=== PATIENT | male | born 1965 | race Caucasian/White ===

== ENCOUNTER 2022-10-18 18:30 | Emergency (ER) | payer BC, SELFPAY ==
[2022-10-18] VITALS (22 sets, daily range): BP systolic 103–142; BP diastolic 61–92; PULSE 69–102; RESP 14–25; TEMP 37.2; O2SAT 91–99
--- NOTE | ~2022-10-18 | XR_ITS ---
EXAMINATION: XR chest 2V DATE: 10/18/2022 21:16 INDICATION: Cough TECHNIQUE: PA and lateral views of the chest are obtained. COMPARISON: None available FINDINGS: There are patchy airspace opacities with a mid and lower lung zone predominance. No pleural effusion or pneumothorax. The cardiomediastinal silhouette is normal. There is mild thoracic spondyl osis. IMPRESSION: 1. Airspace opacities of the mid and lower lung zones, consistent with atelectasis versus pneumonia. Reviewed, dictated and finalized at location F. IMPRESSION: 1. Airspace opacities of the mid and lower lung zones, consistent with atelecta sis versus pneumonia.
--- NOTE | 2022-10-18 20:54 | ED.RECABL ---
HPI - Recheck/Abnormal Lab/Rx General Chief Complaint: Recheck/Abnormal Lab/Rx <JESUS Corea Last Filed: 10/19/22 02:35> Stated Complaint: sent from <JESUS Corea Last Filed: 10/19/22 02:35> Time Seen by Provider: 10/18/22 20:53 <JESUS Corea Last Filed: 10/19/22 02:35> Source: patient <JESUS Corea Last Filed: 10/19/22 02:35> Mode of arrival: ambulatory <JESUS Corea Filed: 10/19/22 02:35> Limitations: no limitations <JESUS Corea Last Filed: 10/19/22 02:35> History of Present Illness HPI narrative: Patient is a 57 y/o male who presents to the ED with c/o cough. Patient reports having a persistent nagging cough for the last 3 days. States cough is worse at night and when laying flat. He denies production of sputum. He denies any other significant upper respiratory symptoms, denies congestion, rhinorrhea, sore throat. He was seen at an outside urgent care this afternoon and was noted to have a fever up to 103 ?F. He was given ibuprofen. He was told there was an abnormal spot on his chest x-ray and was referred to the ED for further evaluation. Patient denied having known fevers at home. Patient mentions having intermittent pain in his lower back only when coughing. Denies any chest pain or shortness of breath. Denies dyspnea with exertion. Denies lower extremity pain or swelling. Denies any family members with similar symptoms. He was tested negative for COVID, flu, strep at the urgent care. <JESUS Corea Last Filed: 10/19/22 02:35> Related Data Allergies/Adverse Reactions: Allergies Allergy/AdvReac Type Severity Reaction Status Date / Time No Known Allergies Allergy Verified 10/18/22 20:58 <JESUS Corea Last Filed: 10/19/22 02:35> Review of Systems Review of Systems: CONSTITUTIONAL: See HPI. ENT: Denies rhinorrhea, congestion, sore throat. CARDIOVASCULAR: Denies chest pain, palpitations, or edema. RESPIRATORY: See HPI. GASTROINTESTINAL: Denies abdominal pain, nausea, vomiting, or diarrhea. SKIN: Denies rash or itching. MUSCULOSKELETAL: See HPI. <Annie Hidalgo PA-C - Last Filed: 10/19/22 02:35> All systems reviewed & are unremarkable except as noted in HPI and below <Annie Hidalgo PA-C - Last Filed: 10/19/22 02:35> Exam Narrative: GENERAL: Well appearing, obese with BMI of 36.5, non-toxic, in no acute distress. HEAD: Normocephalic, atraumatic. NECK: Supple. No adenopathy, no masses. RESPIRATORY: Airway patent, respirations nonlabored. Decreased lung sounds in bases bilaterally, no focal rhonchi. No wheezing. CARDIOVASCULAR: Regular rate and rhythm without murmurs, rubs, or gallops. Radial pulses 2+ and equal bilaterally. ABDOMINAL: Soft, nontender, nondistended, no hepatosplenomegaly. Normoactive BS. MUSCULOSKELETAL: Moves all extremities. Strength/ROM intact without gross deformities. No edema. No calf tenderness. SKIN: Warm, dry, mildly diaphoretic. No rashes. NEURO: A&O X3. Speech clear. Cranial nerves II-XII grossly intact. Steady gait. No ataxic movements. PSYCHIATRIC: Appropriate mood and affect. Normal interaction. <Annie Hidlago PA-C - Last Filed: 10/19/22 02:35> Course [employer]ACH[employer]ENDER/PA Physician Supervision This is a was performed by both a physician and an APC. I performed all aspects of the MDM as documented w/ the following additions: 57-year-old male presenting to ED with persistent cough and fever. Workup was significant for pneumonia. Patient given IV antibiotics here in the emergency department fluid resuscitated. Vital signs returned normal after fluid resuscitation. Overall patient does not want admission. He would rather attempt a course of outpatient management. Patient will be discharged with appropriate antibiotics and return precautions.All questions answered. Patient in ag
--- NOTE | 2022-10-18 20:55 | ECG_ITS ---
Measurements Intervals Apex Rate: 73 P: 30 CO: 174 QRS: -6 QRSD: 95 T: 23 QT: 384 QTc: 426 Interpretive Statements SINUS RHYTHM NO PREVIOUS ECG AVAILABLE FOR COMPARISON Electronically Signed On 10-19-2022 10:49:58 CDT by Memo Solorio M.D.
[2022-10-18 21:15] LABS: Basophils Percent Auto 0.3 % (0.2-1.2); Eosinophils Percent Auto 0.3 % (0-4.4); Hemoglobin 11.8 g/dL (14.0-18.0); Immature Granulocyte Absolute 0.01 K/mm3 (0.00-0.031); Immature Granulocyte Percent A 0.3 % (0-0.5); Lymphocytes Absolute Auto 0.71 K/mm3 (0.9-3.2); Lymphocytes Percent Auto 18.5 % (18.3-44.2); Mean Corpuscular HGB Conc 32.8 g/dl (32-36); Mean Corpuscular Hemoglobin 31.6 pg (26-34); Mean Corpuscular Volume 96.3 fl (80-100); Monocytes Absolute Auto 0.5 K/mm3 (0.1-0.6); Monocytes Percent Auto 13.8 % (2.6-8.5); Neutrophils Absolute Auto 2.6 K/mm3 (1.3-6.7); Neutrophils Percent Auto 66.8 % (45.5-73.1); Platelet Count Result 181 k/mm3 (150-375); Red Blood Count 3.74 M/mm3 (4.6-6.20); Red Cell Distribution Width 13.7 % (11.5-14.5); White Blood Count 3.8 K/mm3 (4.5-10.0)
[2022-10-18 21:35] LABS: Alanine Aminotransferase 31 U/L (6-50); Albumin Level 4.4 g/dL (3.5-5.1); Alkaline Phosphatase 35 U/L (38-126); Anion Gap 8 mmol/L (8-16); Aspartate Amino Transferase 40 U/L (17-59); Bilirubin,Total 0.7 mg/dL (0.2-1.3); Blood Urea Nitrogen 14 mg/dL (9-20); Calcium 8.6 mg/dL (8.4-10.2); Carbon Dioxide 27 mmol/L (22-30); Chloride 102 mmol/L (98-107); Estimated CRCL calculation 100 ml/min; Estimated Glomerular Filt Rate > 60; Glucose 127 mg/dL (65-110); Potassium 3.7 mmol/L (3.4-5.0); Sodium 137 mmol/L (137-145)
[2022-10-18] MEDS: AZITHROMYCIN 500 MG/NS 250 ML 500 MG/250 ML BAG 250 MG IVPB (22:33)
[2022-10-18 22:34] LABS: Lactic Acid Reflex 0.8 mmol/L (0.7-2.0)
== END 2022-10-18 23:42 | disposition home or self-care (01) ==
PROVIDERS: Emergency Provider Physician Assistant
DX: J18.9 Pneumonia, unspecified organism (principal)
CPT/HCPCS: 36415; 71046; 80053; 83605; 85025; 87040; 93005; 96365; 96367; 99284; J0456; J0696

== ENCOUNTER → 2023-04-23 11:40 | Outpatient (CLI) | payer BC, SELFPAY ==
--- NOTE | ~2023-04-23 | XR_ITS ---
Clinical Indication: Pneumonia PA and lateral views of the chest: Comparison: 10/18/2022 Findings: The lungs are clear, without evidence of focal consolidation or pleural effusion. Cardiome diastinal silhouette is within normal limits. Bones and soft tissues are unremarkable. Impression: Normal chest. Reviewed, dictated and finalized at location . IGURATION MANAGEMENT SPECIALIST Impression: Normal chest.
== END ==
DX: J18.9 Pneumonia, unspecified organism (principal)
CPT/HCPCS: 71046

== ENCOUNTER 2024-09-29 15:48 | Outpatient (CLI) | payer BC, OTHER, SELFPAY ==
--- NOTE | ~2024-09-29 | US_ITS ---
EXAMINATION: US soft tissue head and neck DATE: 09/29/2024 16:01 INDICATION: Left sided neck mass TECHNIQUE: Multiple grayscale and Doppler ultrasound images of the region of concern at the supraclav icular left neck were obtained. COMPARISON: None FINDINGS: There are a couple normal-sized hypoechoic left supraclavicular lymph nodes with echogenic fatty mark at the region of concern, the larger measuring 9 x 8 x 9 mm and 9 x 6 x 4 mm. No pathologically enla rged lymph nodes or other abnormal masses or fluid collections identified. IMPRESSION: 1. A couple normal-sized left supraclavicular lymph nodes at the region of concern. Reviewed, dictated and finalized at location A. IMPRESSION: 1. A couple normal-sized left supraclavicular lymph nodes at the region of conc delvin.
== END 2024-09-29 15:49 | disposition home or self-care (01) ==
LOC: MICIMG 15:49
DX: R59.0 Localized enlarged lymph nodes (principal)
CPT/HCPCS: 76536

== ENCOUNTER 2025-03-31 01:31 | Day surgery (SDC) | payer BC, OTHER, SELFPAY ==
[2025-03-27 09:18] VITALS: BMI 34.9
--- NOTE | 2025-03-27 09:31 | PC.NURSE ---
Spoke with patient regarding medication Eliquis. Patient verbalizes understanding that the last dose is to be taken on 03/27/2025 and the Endoscopist will instruct them when to restart after the procedure.
[2025-03-31 08:43] VITALS: BP 133/94; PULSE 75; RESP 20; TEMP 36.2; O2SAT 97; BMI 34.3
--- NOTE | 2025-03-31 08:58 | P.PNAN_ITS ---
Anes - Initial Pre Proc Eval Procedure: Operation Date: 03/31/25 09:30 Proposed Procedures p Screening Colonoscopy - Brijesh Lake MD Date/Time: 03/31/25 08:58 Surgeon: Brijesh Lake MD Pre Op Diagnosis: screening/hx of diverticulosis/hemorrhoids Patient Data Age: 59 Gender: M Height: 1.96 m Weight: 131.4 kg Last Vital Signs Temp 36.2 C L 03/31/25 08:43 Pulse 75 03/31/25 08:43 Resp 20 03/31/25 08:43 BP 133/94 H 03/31/25 08:43 Pulse Ox 97 03/31/25 08:43 O2 Del Method Room Air 03/31/25 08:43 Allergies Allergy/AdvReac Type Severity Reaction Status Date / Time No Known Allergies Allergy Verified 03/31/25 08:50 Home Medications ?Medication ?Instructions ?Recorded ?Confirmed ?Type apixaban 5 mg tablet (Eliquis) 5 mg PO Q12H 03/27/25 1 05/31/24 History simvastatin 40 mg tablet 40 mg PO QPM 03/27/25 History Patient hx anesthesia problems: none Family hx anesthesia problems: none Results Review: All pre-operative results and documents have been reviewed as part of the pre- operative evaluation. [facility] Past Medical History Medical History (Updated 03/31/25 @ 08:58 by Tristen Sepulveda MD) DVT (deep venous thrombosis) Hyperlipidemia Obesity Surgical History Surgical History (Updated 03/31/25 @ 08:58 by Tristen Sepulveda MD) H/O arthroscopic knee surgery Social History Social History Smoking packs per day: 1 Smoking cigarettes per day: 20.0 Years smoked: 28 Smoking pack-years: 28.00 Smoking status: Former smoker Tobacco type: cigarettes Alcohol intake: current Substance use: never Living arrangements: with family Spiritual care concerns: No Anes - Eval Final PreProcedure Day of Procedure 03/31/25 08:58 Patient weight: obese Heart: regular rate and rhythm Lungs: clear to auscultation Airway: Mallampati scale class II and other (high arched palate) Neurological: alert and oriented Last oral intake: >/= 8 hours ASA classification: III Emergent: no Anesthetic plan: proceed Anesthesia type and monitoring: general GIVS and standard monitoring Results Review: All pre-operative results and documents have been reviewed as part of the pre- operative evaluation. Informed Consent: The patient's anesthetic plan and its attendant risks and benefits were discussed with the patient/family/POA. Questions were solicited and answers provided to the satisfaction of the patient/family/POA.
[2025-03-31] MEDS: LACTATED RINGERS 1,000 ML 150 ML IV CONT (09:05)
--- NOTE | 2025-03-31 09:30 | PM.IMHP ---
H&P: HPI History of Present Illness Date/Time: 03/31/25 09:30 Chief Complaint: Screening colonoscopy Narrative: This is the patient's 2nd screening colonoscopy. There are no GI symptoms and there is no family history of colorectal cancer. Review of Systems Review of Systems: All systems reviewed & are unremarkable except as noted in HPI and below PMFSH Past Medical History Medical History (Updated 03/31/25 @ 09:31 by Brijesh Lake MD) DVT (deep venous thrombosis) Hyperlipidemia Obesity Surgical History Surgical History (Updated 03/31/25 @ 08:58 by Tristen Sepulveda MD) H/O arthroscopic knee surgery Social History Social History Smoking packs per day: 1 Smoking cigarettes per day: 20.0 Years smoked: 28 Smoking pack-years: 28.00 Smoking status: Former smoker Tobacco type: cigarettes Alcohol intake: current Substance use: never Living arrangements: with family Spiritual care concerns: No Meds Home Medications and Allergies Home Medications ?Medication ?Instructions ?Recorded ?Confirmed ?Type apixaban 5 mg tablet (Eliquis) 5 mg PO Q12H 03/27/25 03/31/25 History simvastatin 40 mg tablet 40 mg PO QPM 03/27/25 03/31/25 History Allergies Allergy/AdvReac Type Severity Reaction Status Date / Time No Known Allergies Allergy Verified 03/31/25 08:50 Vital Signs Vital Signs - 24 hr 03/31/25 08:43 Temperature 97.2 F L Pulse Rate 75 Respiratory Rate 20 Blood Pressure 133/94 H Pulse Oximetry 97 Oxygen Delivery Room Air Exam Const: General: cooperative and healthy appearing Resp: Effort & Inspection: normal respiratory effort and able to speak in complete sentences Auscultation: clear to auscultation bilaterally Cardio: Rate: regular rate Rhythm: regular rhythm GI: Inspection: normal to inspection GI Palp: No No hepatosplenomegaly present Auscultation: normal bowel sounds Rectal Exam: deferred Skin: General skin exam: normal color Psych: Appearance: grossly normal Mental Status: mental status grossly normal Assessment and Plan Assessment and plan (1) Encounter for screening colonoscopy: Code(s): Z12.11 - Encounter for screening for malignant neoplasm of colon Status: Acute Assessment and Plan: The patient is deemed a good candidate for the procedure. Consent signed. Will proceed.
--- NOTE | 2025-03-31 10:15 | S_PTH ---
PATIENT: Yuriy Nelson LOC: [facility] #:[id number] AGE/SX: 59/M ROOM: RE03/31/[address]: Brijesh Lake MD : 1965 BED: DIS: 03/31/2025 SPEC #: [id number] RECD: 03/31/25 10:20 STATUS: IRWIN REBry #: [id number] TYLER: 03/31/25 10:[address]: Brijesh Lake DEPT: [facility] Surgical RECD BY: Jam Donald Tissues: A - Colon Polypectomy B - Colon Polypectomy C - Colon Polypectomy Procedures: Hematoxylin and Eosin Stain Gross and Microscopic Level 4
[2025-03-31 10:19] VITALS: BP 124/85; PULSE 60; RESP 16; O2SAT 96
[2025-03-31 10:29] VITALS: BP 135/95; PULSE 60; RESP 19; O2SAT 98
[2025-03-31 10:39] VITALS: BP 137/94; PULSE 60; RESP 16; O2SAT 97
== END 2025-03-31 10:45 | disposition home or self-care (01) ==
PROVIDERS: Visit Provider Internal Medicine Gastroenterology
PROC: 0DJD8ZZ Inspection of Lower Intestinal Tract, Via Natural or Artificial Opening Endoscopic (ICD-10-PCS; CPT 45378; principal; 2025-03-31 09:30)
DX: Z12.11 Encounter for screening for malignant neoplasm of colon (principal); D12.2 Benign neoplasm of ascending colon; D12.3 Benign neoplasm of transverse colon; K63.5 Polyp of colon; K57.30 Diverticulosis of large intestine without perforation or abscess without bleeding; D17.5 Benign lipomatous neoplasm of intra-abdominal organs; E78.5 Hyperlipidemia, unspecified; E66.9 Obesity, unspecified; Z68.34 Body mass index [BMI] 34.0-34.9, adult; Z79.01 Long term (current) use of anticoagulants; Z98.890 Other specified postprocedural states; Z87.891 Personal history of nicotine dependence; Z86.718 Personal history of other venous thrombosis and embolism
CPT/HCPCS: 45390; 88305; J2003; J2704; J7120